=== PATIENT | female | born 2000 ===

== ENCOUNTER 2020-10-19 14:10 | Outpatient (REF) | payer MEDICAID, SELFPAY ==
--- NOTE | ~2020-10-19 | US_ITS ---
EXAMINATION: PELVIC ULTRASOUND CLINICAL INFORMATION: Left lower quadrant pain. History of ovarian cysts. COMPARISON: None TECHNIQUE: Transabdominal and transvaginal pelvic ultrasound was performed. Transvaginal exam was performed for better visualization of the uterus and ovaries. FINDINGS: The uterus is anteverted and measures 8.3 x 3.6 x 4.6 cm in dimension. No focal uterine lesion is seen. There is an IUD in the uterus in satisfactory position. The endometrium does not appear thickened. There is a small amount of fluid in the endocervical canal. The cervix is otherwise normal. The ovaries are normal-appearing. The right ovary measures 3 x 2 x 3.8 cm and the left ovary measures 3 x 2 x 2.4 cm. There is no fluid in the pelvis. US/US pelvic complete IMPRESSION: IUD in the uterus in satisfactory position. Otherwise unremarkable exam.
--- NOTE | ~2020-10-19 | US_ITS ---
EXAMINATION: PELVIC ULTRASOUND CLINICAL INFORMATION: Left lower quadrant pain. History of ovarian cysts. COMPARISON: None TECHNIQUE: Transabdominal and transvaginal pelvic ultrasound was performed. Transvaginal exam was performed for better visualization of the uterus and ovaries. FINDINGS: The uterus is anteverted and measures 8.3 x 3.6 x 4.6 cm in dimension. No focal uterine lesion is seen. There is an IUD in the uterus in satisfactory position. The endometrium does not appear thickened. There is a small amount of fluid in the endocervical canal. The cervix is otherwise normal. The ovaries are normal-appearing. The right ovary measures 3 x 2 x 3.8 cm and the left ovary measures 3 x 2 x 2.4 cm. There is no fluid in the pelvis. US/US transvaginal IMPRESSION: IUD in the uterus in satisfactory position. Otherwise unremarkable exam.
== END 2020-10-19 14:11 | disposition home or self-care (01) ==
LOC: HO.HMGCX 14:10
PROVIDERS: PCP Internal Medicine; Visit Provider Internal Medicine
DX: R10.32 Left lower quadrant pain (principal); Z87.42 Personal history of other diseases of the female genital tract
CPT/HCPCS: 76830; 76856

== ENCOUNTER → 2020-10-27 10:40 | Outpatient (BNVA) | payer MEDICAID, SELFPAY | PROVIDERS: PCP Internal Medicine; Visit Provider Advanced Practice Midwife ==